=== PATIENT | male | born 1960 | race Caucasian/White ===

== ENCOUNTER 2017-07-07 06:33 | Day surgery (SDC) | payer OTHER ==
[~2017-07-07 06:33] MED LIST: RINGER'S SOLUTION,LACTATED 1,000 ML IV PRN
--- OUTSIDE RECORDS SUMMARY | 2017-07-07 06:37 | XMS REPORT | Clinical Summary ---
:1960 Author Organization [facility] [employer] [facility] [place] [address] Care Team Providers Name Role Phone Unavailable Primary Care Provider Unavailable Source Comments This disclosure is being made pursuant to the ZIPDIGS program and maynot contain all information available regarding this patient.[facility] Allergies Not on File Current Medications Be aware that medications may not be up to date as of this document. Alwaysverify current medications with the patient. Not on file Active Problems Not on file Social History Tobacco Use Types Packs/Day Years Used Date Never Assessed Sex Assigned at Date Recorded Not on file Last Filed Vital Signs Not on file Plan of Treatment Health Maintenance Due Date Last Done Comments Retired-Pertussis Vaccine Adult 1977 Retired-Tetanus Vaccine Adult 1979 Colonoscopy 2008 Well Adult Visit 2008 Retired-INFLUENZA VACCINE 07/24/2015 Results Not on filefrom Last 3 Months
--- NOTE | 2017-07-07 10:00 | OR ---
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 A flexible fiberoptic video colonsocope was introduced and advanced under direct vision without difficulty to the cecum. The usual landmarks were identified. Preparation was moderate and good views were obtained. The findings were of a normal cecum, ascending colon, hepatic flexure, transverse colon, splenic flexure, descending colon, sigmoid colon, and rectum except for some mild internal hemorrhoids noted on retroflex. The mucosal color, vasculature and texture were normal throughout. No suspicious masses were seen. The patient tolerated the procedure welll without apparent complications and was discharged from the endoscopy suite in stable condition.
[2017-07-07 11:29] VITALS: BP 142/88
== END 2017-07-07 06:34 | disposition home or self-care (01) ==
LOC: AMB 06:33
PROVIDERS: ATTEND Specialist
PROC: 0DJD8ZZ Inspection of Lower Intestinal Tract, Via Natural or Artificial Opening Endoscopic (ICD-10-PCS; principal; 2017-07-07 08:00)
DX: Z12.11 Encounter for screening for malignant neoplasm of colon (principal); K64.8 Other hemorrhoids; E11.9 Type 2 diabetes mellitus without complications; Z87.891 Personal history of nicotine dependence; Z68.36 Body mass index [BMI] 36.0-36.9, adult